=== PATIENT | male | born 1950 | race Caucasian/White ===

== ENCOUNTER 2020-06-12 20:41 | Observation (INO) | payer OTHER ==
[2020-06-12 21:10] LABS: Absolute Lymphocytes (CBC) 1.8 K/uL (0.7-4.9); Basophils % 1.4 % (0-1.3); Hematocrit 41.1 % (39.6-49.0); Lymphocytes % 30.6 % (15.3-44.8); MPV 7.9 fL (7.6-11.3); RBC Red Blood Cell Count 4.53 M/uL (4.33-5.43)
[2020-06-12 21:14] LABS: Protime INR 0.95
[2020-06-12 21:31] LABS: ALT/SGPT 38 U/L (12-78); Albumin 3.8 g/dL (3.4-5.0); Alkaline Phosphatase 65 U/L (45-117); BUN Blood Urea Nitrogen 19 mg/dL (7-18); Bicarbonate 27 mmol/L (21-32); Bilirubin Direct < 0.1 mg/dL (0-0.2); Bilirubin Total 0.3 mg/dL (0.2-1.0); Glucose Level 81 mg/dL (74-106); NT PRO-BNP 132 pg/mL (<125); Protein, Total 7.8 g/dL (6.4-8.2); Sodium Level 140 mmol/L (136-145); Troponin (Emerg Dept Use Only) < 0.02 ng/mL (0.0-0.045)
[2020-06-12 21:32] LABS: AST/SGOT 22 U/L (15-37); Magnesium 2.4 mg/dL (1.8-2.4); Potassium 3.8 mmol/L (3.5-5.1)
--- NOTE | 2020-06-13 00:39 | ER ---
Nurse's Notes [facility] Name: Urbano Gonzales Age: 69 yrs Sex: Male : 1950 Arrival Date: 06/12/2020 Time: 20:43 Bed 6 Private MD: Diagnosis: Chest pain, unspecified Presentation: 06/12 20:47 Coronavirus screen: Client denies travel out of the [place] in the last 14 days. At this ll1 time, the client does not indicate any symptoms associated with coronavirus-19. Ebola Screen: Patient denies travel to an Ebola-affected area in the 21 days before illness onset. Initial Sepsis Screen: Does the patient meet any 2 criteria? No. Patient's initial sepsis screen is negative. Does the patient have a suspected source of infection? No. Patient's initial sepsis screen is negative. Risk Assessment: Do you want to hurt yourself or someone else? Patient reports no desire to harm self or others. Onset of symptoms was June 10, 2020. 20:47 Acuity: JIMI 2 ll1 20:47 Method Of Arrival: Ambulatory ll1 20:51 Chief complaint: Patient states: Chest pain for 2-3 days. Pain down L arm. Tingling in ll1 legs. + lightheaded. States he noticed the pain in his mid back today. Historical: - Allergies: 20:47 No Known Allergies; ll1 - PMHx: 20:47 Myocardial infarction; bladder tumors removed; Hyperlipidemia; Hypertension; ll1 - PSHx: 20:47 cardiac stent and bypass; ll1 - Immunization history:: Flu vaccine is up to date. - Social history:: Smoking status: Patient denies any tobacco usage or history of. Screenin:03 Abuse screen: Denies threats or abuse. Nutritional screening: No deficits noted. ea Tuberculosis screening: No symptoms or risk factors identified. Fall Risk IV access (20 points). Assessment: 21:04 General: Appears in no apparent distress. Behavior is appropriate for age. Pain: ea Complains of pain in thoracic area Pain does not radiate. Pain began suddenly. Neuro: Level of Consciousness is awake, alert, obeys commands, Oriented to person, place, time, situation. Cardiovascular: Patient's skin is warm and dry. Respiratory: Airway is patent Respiratory effort is even, unlabored, Respiratory pattern is regular, symmetrical. 21:46 Reassessment: [id number]. ea 22:08 Reassessment: Patient and/or family updated on plan of care and expected duration. Pain ea level reassessed. Patient is alert, oriented x 3, equal unlabored respirations, skin warm/dry/pink. 22:16 Reassessment: -[id number] ( jose). mg2 22:27 Reassessment: Patient and/or family updated on plan of care and expected duration. Pain ea level reassessed. Patient is alert, oriented x 3, equal unlabored respirations, skin warm/dry/pink. Pt returned from CT. 23:27 Reassessment: Patient appears in no apparent distress at this time. Patient and/or mg2 family updated on plan of care and expected duration. Pain level reassessed. Patient is alert, oriented x 3, equal unlabored respirations, skin warm/dry/pink. 06/13 00:33 Reassessment: Patient appears in no apparent distress at this time. Patient and/or mg2 family updated on plan of care and expected duration. Pain level reassessed. Patient is alert, oriented x 3, equal unlabored respirations, skin warm/dry/pink. 00:54 Reassessment: BRENDON Garcia- hospitalist at bedside with the patient. advised admission. mg2 Vital Signs: 06/12 20:47 BP 139 / 72; Pulse 52; Resp 16; Temp 97.3; Pulse Ox 100% ; Weight 96.16 kg; Height 5 ll1 ft. 10 in. (177.80 cm); Pain 5/10; 21:47 BP 133 / 51; Pulse 53; Resp 18; Pulse Ox 99% ; ea 22:29 BP 149 / 56; Pulse 51; Resp 18; Pulse Ox 98% on R/A; mg2 23:27 BP 125 / 52; Pulse 49; Resp 18; Pulse Ox 100% on R/A; mg2 06/13 00:33 BP 130 / 63; Pulse 48; Resp 18; Pulse Ox 100% on R/A; mg2 01:08 BP 136 / 59; Pulse 46; Resp 18; Temp 97.2; Pulse Ox 99% ; ea 06/12 20:47 Body Mass Index 30.42 (96.16 kg, 177.80 cm) ll1 ED Course: 06/12 20:43 Patient arrived in ED. ds1 20:48 Triage completed. ll1 20:48 Robin Boogie, RN is Primary Nurse. mg2 20:50 Walter Carl PA is PHCP. cp 20:50 Walter Myers MD is Attending Physician. cp 20:52 Arm band placed on Patient placed in an exam room, on a stretcher. ll1 21:03 Patient has correct armband on for positive identification. Placed in gown. Bed in low ea position. Call light in reach. Side rails up X 1. marketing lead on. Pulse ox on. NIBP on. 21:03 Inserted saline lock: 20 gauge in right antecubital area, using aseptic technique. ea Blood collected. 21:03 Patient maintains SpO2 saturation greater than 95% on room air. ea 23:27 No provider procedures requiring assistance completed. mg2 06/13 00:38 Bharat Rubi MD is Hospitalizing Provider. cp 01:07 Patient admitted, IV remains in place. ea 01:17 COVID swab sent to lab. mg2 Administered Medications: 01:07 Drug: Aspirin Chewable Tablet 324 mg Route: PO; ea 01:39 Follow up: Response: No adverse reaction mg2 Outcome: 00:39 Decision to Hospitalize by Provider. cp 01:07 Instructed on the need for admit, Demonstrated understanding of instructions. ea 02:38 Admitted to Med/surg accompanied by nurse, via wheelchair, with chart, Report called to ea Receiving nurse on second floor 02:38 Condition: stable 02:39 Patient left the ED. ea Signatures: Betsy Novoa ds1 Walter Carl PA PA cp Marivel Jo RN RN Robin Boogie RN RN [facility] Morena Haynes RN RN [facility]
--- NOTE | 2020-06-13 00:39 | EDPHYS ---
Physician Documentation [facility] Name: Urbano Gonzales Age: 69 yrs Sex: Male : 1950 Arrival Date: 06/12/2020 Time: 20:43 Bed 6 Private MD: ED Walter Grewal HPI: 06/12 21:04 This 69 yrs old Male presents to ER via Ambulatory with complaints of Chest cp Tightness. 21:05 The patient or guardian reports chest pain that is located primarily in the anterior cp chest wall, bilaterally. 21:05 Onset: 2 day(s) ago. The pain radiates to the left arm. Associated signs and symptoms: cp Pertinent positives: lightheadedness, mid back pain, Pertinent negatives: cough, shortness of breath, vomiting. The chest pain is described as tightness. 21:05 Duration: The patient or guardian reports multiple episodes, that are intermittent. cp Historical: - Allergies: 20:47 No Known Allergies; ll1 - PMHx: 20:47 Myocardial infarction; bladder tumors removed; Hyperlipidemia; Hypertension; ll1 - PSHx: 20:47 cardiac stent and bypass; ll1 - Immunization history:: Flu vaccine is up to date. - Social history:: Smoking status: Patient denies any tobacco usage or history of. ROS: 21:10 Constitutional: Negative for body aches, chills, fever, poor PO intake. cp 21:10 Cardiovascular: Positive for chest pain, Negative for edema, palpitations. cp 21:10 Respiratory: Negative for cough, shortness of breath, wheezing. 21:10 Abdomen/GI: Negative for abdominal pain, nausea, vomiting, and diarrhea. 21:10 Back: Positive for pain at rest, radiated pain, of the mid back, Negative for injury or acute deformity. 21:10 Neuro: Negative for altered mental status, headache, syncope, weakness. Exam: 21:03 ECG was reviewed by the Attending Physician. cp 21:15 Constitutional: The patient appears in no acute distress, alert, awake, cp non-diaphoretic, non-toxic, well developed, well nourished. 21:15 Head/Face: Normocephalic, atraumatic. cp 21:15 Eyes: Periorbital structures: appear normal, Conjunctiva: normal, no exudate, no injection, Sclera: no appreciated abnormality, Lids and lashes: appear normal, bilaterally. 21:15 ENT: External ear(s): are unremarkable, Nose: is normal, Mouth: Lips: moist, Oral mucosa: moist, Posterior pharynx: Airway: no evidence of obstruction, patent. 21:15 Neck: ROM/movement: is normal, is supple, without pain, no range of motions limitations. 21:15 Chest/axilla: Inspection: normal, Palpation: is normal, no crepitus, no tenderness. 21:15 Cardiovascular: Rate: bradycardic, Rhythm: regular, Edema: is not appreciated, JVD: is not appreciated. 21:15 Respiratory: the patient does not display signs of respiratory distress, Respirations: normal, no use of accessory muscles, no retractions, labored breathing, is not present, Breath sounds: are clear throughout, no decreased breath sounds, no stridor, no wheezing. 21:15 Abdomen/GI: Inspection: abdomen appears normal, Palpation: abdomen is soft and non-tender, in all quadrants. 21:15 Back: pain, that is mild, of the mid back, ROM is normal. 21:15 Skin: no rash present. Vital Signs: 20:47 BP 139 / 72; Pulse 52; Resp 16; Temp 97.3; Pulse Ox 100% ; Weight 96.16 kg; Height 5 ll1 ft. 10 in. (177.80 cm); Pain 5/10; 21:47 BP 133 / 51; Pulse 53; Resp 18; Pulse Ox 99% ; ea 22:29 BP 149 / 56; Pulse 51; Resp 18; Pulse Ox 98% on R/A; mg2 23:27 BP 125 / 52; Pulse 49; Resp 18; Pulse Ox 100% on R/A; mg2 06/13 00:33 BP 130 / 63; Pulse 48; Resp 18; Pulse Ox 100% on R/A; mg2 01:08 BP 136 / 59; Pulse 46; Resp 18; Temp 97.2; Pulse Ox 99% ; ea 06/12 20:47 Body Mass Index 30.42 (96.16 kg, 177.80 cm) ll1 MDM: 06/12 20:52 Patient medically screened. cp 21:00 Differential diagnosis: abnormal EKG, acute myocardial infarction, pneumonia, cp pneumothorax, pulmonary embolus, stable angina, thoracic aortic disection, unstable angina. 06/13 00:30 Physician consultation: Jose MENESES was contacted at 00:30, regarding admission, cp to the telemetry unit. patient's condition. 00:38 Data reviewed: vital signs, nurses notes, lab test result(s), EKG, radiologic studies, cp CT scan, plain films, and as a result, I will admit patient. 06/12 20:56 Order name: Basic Metabolic Panel mg2 06/12 20:56 Order name: CBC with Diff mg2 06/12 20:56 Order name: LFT's mg2 06/12 20:56 Order name: Magnesium mg2 06/12 20:56 Order name: NT PRO-BNP mg2 06/12 20:56 Order name: PT-INR mg2 06/12 20:56 Order name: Troponin (emerg Dept Use Only) mg2 06/12 21:16 Order name: Protime (+INR); Complete Time: 21:55 EDMS 06/12 21:17 Order name: CBC with Automated Diff; Complete Time: 21:55 EDMS 06/12 21:33 Order name: Basic Metabolic Panel; Complete Time: 21:55 EDMS 06/12 21:33 Order name: Liver (Hepatic) Function; Complete Time: 21:55 EDMS 06/12 21:33 Order name: Troponin (Emerg Dept Use Only); Complete Time: 21:55 EDMS 06/12 21:33 Order name: NT PRO-BNP; Complete Time: 21:55 EDMS 06/12 21:33 Order name: Magnesium; Complete Time: 21:55 EDMS 06/12 20:52 Order name: EKG; Complete Time: 20:53 cp 06/12 20:52 Order name: EKG - Nurse/Tech; Complete Time: 20:55 cp 06/12 20:56 Order name: XRAY Chest (1 view) mg2 06/12 20:56 Order name: Cardiac monitoring; Complete Time: 21:03 mg2 06/12 20:56 Order name: IV Saline Lock; Complete Time: 21:03 mg2 06/12 20:56 Order name: Labs collected and sent; Complete Time: 21:03 mg2 06/12 20:56 Order name: O2 Per Protocol; Complete Time: 21:03 mg2 06/12 20:56 Order name: O2 Sat Monitoring; Complete Time: 21:03 mg2 06/12 21:56 Order name: CT Aorta for Dissection cp 06/12 21:56 Order name: CT Head Brain wo Cont cp 06/13 00:54 Order name: COVID-19 mg2 06/13 01:05 Order name: CORONAVIRUS EDMS 06/13 02:26 Order name: SARS-COV-2 RT PCR EDMS EC/21 21:03 Rate is 49 beats/min. Rhythm is regular. OH interval is normal. QRS interval is cp prolonged at 156 msec. QT interval is normal. T waves are Flattened in lead aVL. Interpreted by me. Reviewed by me. Administered Medications: 06/13 01:07 Drug: Aspirin Chewable Tablet 324 mg Route: PO; ea 01:39 Follow up: Response: No adverse reaction mg2 Disposition: 01:00 Chart complete. cp 07:22 Co-signature as Attending Physician, Walter Myers MD I agree with the assessment and [facility] plan of care. Disposition: 06/13/20 00:39 Hospitalization ordered by Bharat Rubi for Observation. Preliminary diagnosis is Chest pain, unspecified. - Bed requested for Telemetry/MedSurg (observation). - Status is Observation. ea - Condition is Stable. - Problem is new. - Symptoms have improved. Signatures: Dispatcher [employer] Walter Newell MD MD cha Page, Corey, PA PA cp Garcia, Cindy, BOY RN cg Marivel Jo RN RN ea Gardose, Michele, RN RN mg2 Morena Haynes RN RN ll1 Corrections: (The following items were deleted from the chart) 02: 00:39 Hospitalization Ordered by Bharat Rubi MD for Observation. Preliminary cg diagnosis is Chest pain, unspecified. Bed requested for Telemetry/MedSurg (observation). Status is Observation. Condition is Stable. Problem is new. Symptoms have improved. cp 02:39 02:22 06/13/2020 00:39 Hospitalization Ordered by Bharat Rubi MD for Observation. ea Preliminary diagnosis is Chest pain, unspecified. Bed requested for Telemetry/MedSurg (observation). Status is Observation. Condition is Stable. Problem is new. Symptoms have improved. cg
[2020-06-13] MEDS ORDERED: ASPIRIN 81 MG CHEWABLE TABLET ONE (01:10)
[2020-06-13] MEDS ORDERED: MORPHINE 2 MG/ML SYR IV PRN (01:43)
[2020-06-13] MEDS ORDERED: ONDANSETRON 4 MG/2 ML VIAL IV PRN (01:43)
--- NOTE | 2020-06-13 02:12 | P.HP ---
Certification for Inpatient Patient admitted to: Observation With expected LOS: <2 Midnights Patient will require the following post-hospital care: None Practitioner: I am a practitioner with admitting privileges, knowledge of patient current condition, hospital course, and medical plan of care. Services: Services provided to patient in accordance with Admission requirements found in Title 42 Section 412.3 of the Code of Federal Regulations <Jose Redman - Last Filed: 06/13/20 02:08> Patient History Date of Service: 06/13/20 Primary Care Provider: Dr. Mulligan Reason for admission: Chest pain History of Present Illness: 61-year-old male with history of hypertension, hyperlipidemia, CAD S/P CABG and stenting to the LAD approximately 12 years ago presents to the emergency department for chest pain. Patient reports that he has been having chest pain intermittently for the last 2-3 days, pain is described as pressure/burning in nature radiating to the back, no associated shortness of breath, nausea, diaphoresis. Pain is not exacerbated or relieved by anything inparticular. Patient was worked up in the emergency department labs unremarkable, EKG without acute changes. Patient had CT dissection protocol performed which did not demonstrate any acute findings, ED provider wishes to admit patient for further evaluation and management of chest pain. - Past Medical/Surgical History -: Hypertension -: Hyperlipidemia -: CAD S/P stenting and CABG to LAD -: CABG x1 LAD Psychosocial/ Personal History: Patient is retired, lives with his - Social History Smoking Status: Never smoker Alcohol use: Yes CD- Drugs: No Caffeine use: Yes Place of Residence: Home <ShannanJose wilder - Last Filed: 06/13/20 02:08> Date of Service: 06/15/20 <Bharat Rubi - Last Filed: 06/15/20 20:33> Allergies No Known Allergies Allergy (Verified 06/13/20 03:20) Review of Systems 10-point ROS is otherwise unremarkable Cardiovascular: Chest Pain, As per HPI <Jose Redman - Last Filed: 06/13/20 02:08> Physical Examination - Physical Exam General: Alert, In no apparent distress HEENT: Atraumatic, PERRLA, Mucous membr. moist/pink Neck: Supple, 2+ carotid pulse no bruit, No LAD Respiratory: Clear to auscultation bilaterally, Normal air movement Cardiovascular: Regular rate/rhythm, Normal S1 S2 Gastrointestinal: Normal bowel sounds, No tenderness Musculoskeletal: No tenderness Integumentary: No rashes Neurological: Normal speech, Normal strength at 5/5 x4 extr, Normal tone - Studies Laboratory Data (last 24 hrs) 06/12/20 21:00: PT 11.2, INR 0.95 06/12/20 21:00: WBC 6.0, Hgb 14.1, Hct 41.1, Plt Count 258 06/12/20 21:00: Sodium 140, Potassium 3.8, BUN 19 H, Creatinine 1.20, Glucose 81, Magnesium 2.4, Total Bilirubin 0.3, AST 22, ALT 38, Alkaline Phosphatase 65 <Jose Redman - Last Filed: 06/13/20 02:08> Assessment and Plan - Plan Assessment Chest pain with history of CAD S/P CABG- rule out ACS Hypertension Hyperlipidemia Plan Chest pain with history of CAD S/P CABG- rule out ACS: Monitor on telemetry, trend troponins, cardiology consult in place. Continue daily aspirin, statin therapy. Obtain and restart home medications as appropriate. NPO in case cardiology prefers intervention. Hypertension: Obtain and continue home medications as appropriate Hyperlipidemia: Lipid panel with morning labs, continue statin therapy. Discharge Plan: Home Plan to discharge in: 24 Hours - Advance Directives Does patient have a Living Will: No Does patient have a Durable POA for Healthcare: No - Code Status/Comfort Care Code Status Assessed: Yes (Full code) Critical Care: No Time Spent Managing Pts Care (In Minutes): 55 <Jose Redman - Last Filed: 06/13/20 02:08> - Plan Agree with plan of care as noted above by Jose Redman. monitor telemetry, trend troponin. cardiology consulted <Bharat Rubi - Last Filed: 06/15/20 20:33>
[2020-06-13 02:50] VITALS: O2SAT 99
[2020-06-13 03:10] VITALS: BMI 30.6
[2020-06-13 07:41] LABS: Absolute Lymphocytes (CBC) 1.3 K/uL (0.7-4.9); Basophils % 0.9 % (0-1.3); Lymphocytes % 24.1 % (15.3-44.8); MPV 7.9 fL (7.6-11.3); RBC Red Blood Cell Count 4.27 M/uL (4.33-5.43)
[2020-06-13 07:56] LABS: BUN Blood Urea Nitrogen 19 mg/dL (7-18); Bicarbonate 27 mmol/L (21-32); Glucose Level 94 mg/dL (74-106); HDL Cholesterol 58 mg/dL (40-60); LDL Cholesterol, Calculated 94 (<130); Magnesium 2.4 mg/dL (1.8-2.4); Potassium 4.2 mmol/L (3.5-5.1); Sodium Level 141 mmol/L (136-145); Troponin I < 0.02 ng/mL (0.0-0.045)
--- NOTE | 2020-06-13 08:36 | RAD REPORT ---
EXAM DESCRIPTION: RAD - Chest Single View - 06/12/2020 9:39 pm CLINICAL HISTORY: CHEST PAIN Chest pain. COMPARISON: Angio Aorta For Dissection dated 06/12/2020 FINDINGS: Portable technique limits examination quality. Mild linear atelectasis is suspected in both lung bases. The lungs are otherwise clear. The heart is upper limit normal size. No displaced fractures.
[2020-06-13] MEDS: ASPIRIN EC 81 MG TAB PO SCH ×2 (09:00→10:00)
[2020-06-13] MEDS ORDERED: ENOXAPARIN 40 MG/0.4 ML SQ SCH (09:00)
[2020-06-13 10:05] VITALS: BP 130/63; TEMP 98.1
--- NOTE | 2020-06-13 11:50 | RAD REPORT ---
EXAM DESCRIPTION: CT of the head without contrast CLINICAL HISTORY: Paresthesia of arm COMPARISON: None available TECHNIQUE: Axial CT of the head obtained from the skull apex to the skull base without contrast. FINDINGS: No acute intracranial hemorrhage identified. No mass, mass effect, shift of the midline, a bnormal extra-axial fluid collection or CT evidence of acute ischemic change identified. The ventricu lar system and sulcal spaces are mildly enlarged compatible with mild cerebral atrophy. Scattered a reas of hypodensity throughout the supratentorial white matter are nonspecific and may be related to chronic small vessel ischemic change. The visualized paranasal sinuses and mastoid air cells are well aerated. No skull fracture identifi ed. Visualized orbits and globes are unremarkable. Atherosclerotic calcification of the intracranial internal carotid arteries. IMPRESSION: 1. No acute intracranial abnormality by CT criteria. This exam was performed according to our departmental dose-optimization program, which includes autom ated exposure control, adjustment of the mA and/or kV according to patient size and/or use of iterati ve reconstruction technique. Electronically signed by: Rowdy Yi 06/12/2020 10:47 PM SIGN BOARD ERECTOR Due to temporary technical issues with the PACS/Fluency reporting system, reports are being signed by the in house radiologist without review as a courtesy to ensure prompt reporting. The interpreting r adiologist is fully responsible for the content of the report.
--- NOTE | 2020-06-13 11:51 | RAD REPORT ---
EXAM DESCRIPTION: CTA of the chest, abdomen, and pelvis with contrast CLINICAL HISTORY: Back pain;Chest pain COMPARISON: None Available. TECHNIQUE: CTA of the chest, abdomen and pelvis performed following IV administration of iodinated c ontrast. 3-D/MIP reformatted images available. FINDINGS: Chest: Thyroid: No abnormalities of the visualized thyroid. Great Vessels: Great vessels have normal anatomic configuration. Thoracic Aorta: Normal caliber thoracic aorta without evidence of dissection. Mild atherosclerotic pl aque. Pulmonary arteries: No filling defects in the pulmonary arteries. Mild enlargement main pulmonary art karoline could be seen with pulmonary arterial hypertension. Heart: Coronary artery atherosclerosis. No cardiomegaly or significant pericardial effusion. Lymph Nodes: No enlarged mediastinal lymph nodes identified. Esophagus: No abnormalities of the esophagus identified Other: Negative reported airspace consolidation. Minimal bilateral dependent atelectasis. Lungs: No airspace opacities identified. Pleura: No pleural effusion or pneumothorax. Trachea/Airways: No abnormalities of the visualized trachea or airways. Abdomen: Liver: The liver has normal size and density. No intrahepatic mass or biliary dilatation. Gallbladder: No calcified gallstones. Spleen, Pancreas, and Adrenal Glands: The spleen, pancreas, and adrenal glands are unremarkable. Kidneys: The kidneys have normal size and contour without evidence of solid mass or hydronephrosis. Vasculature: Normal caliber abdominal aorta. Aortoiliac atherosclerosis. There is in-line flow into t he common iliac, external, common femoral, proximal superficial femoral arteries. The profunda femora l and internal iliac arteries are patent. The left gastric artery arises directly from the aorta. The celiac and superior mesenteric arteries arise as a single origin celiomesenteric trunk which is wide ly patent. The inferior mesenteric artery is patent. Single patent bilateral renal arteries. No evide nce of aortic dissection. IVC has normal caliber. Stomach: The stomach and duodenum have normal course. Other: No free intraperitoneal air. No free fluid or lymphadenopathy. Pelvis: Bladder: Urinary bladder is unremarkable. Bowel: No dilated loops of large or small bowel. Scattered diverticula of the colon. Appendix: Normal appendix. Pelvis: The small bilateral fat-containing inguinal hernias. Enlarged prostate. Bones: Multilevel degenerative endplate spondylosis. Mild bilateral hip joint space narrowing. IMPRESSION: 1. No evidence of aortic dissection 2. No pulmonary embolus. 3. Coronary artery atherosclerosis. 4. Diverticulosis without evidence of acute diverticulitis. 5. Enlarged prostate. This exam was performed according to our departmental dose-optimization program, which includes autom ated exposure control, adjustment of the mA and/or kV according to patient size and/or use of iterati ve reconstruction technique. Electronically signed by: Rowdy Yi 06/12/2020 10:58 PM [employer] Due to temporary technical issues with the PACS/Fluency reporting system, reports are being signed by the in house radiologist without review as a courtesy to ensure prompt reporting. The interpreting r adiologist is fully responsible for the content of the report.
[2020-06-13] MEDS ORDERED: ATORVASTATIN 40 MG TAB PO SCH (21:00)
--- NOTE | 2020-06-14 14:14 | CON ---
Date of Consultation: 06/13/2020 Reason For Consultation: Chest pain. History Of Present Illness: 69-year-old male who has hypertension, dyslipidemia, and coronary artery disease, status post 1 vessel CABG to the LAD about 12 years ago, presented with chest pain, describ ed as heaviness, pressure-like that radiates to the left upper extremity. No shortness of breath or diaphoresis lasted about 15 minutes and resolved. The patient apparently has been having those chest pains for some time now and stress test has been negative and he sees Dr. Bingham in the office on a regular basis. Past Medical History: Hypertension, dyslipidemia, coronary artery disease. Past Surgical History: Coronary artery bypass 1 vessel about 12 years ago. Medications: Refer to reconciliation sheet for detailed list. Allergies: NO KNOWN DRUG ALLERGIES. Family History: No premature coronary artery disease or cancer. Social History: Does not smoke or drink. Does not use any drugs. Review of Systems: All systems reviewed and they were negative except for what mentioned in the HPI. Physical Examination: Vital Signs: Temperature is 98.1, pulse is 48, breathing at 18, blood pressure 130/63, saturating 96 % on room air. General: Pleasant middle-aged male, in no distress. Head and Neck: Pupils are equal, reactive to light. Intact eye movements. No JVD. No cervical lym phadenopathy. Neck: Supple. Thyroid is not enlarged. Lungs: Clear to auscultation bilaterally. No rhonchi, rales, or crackles. No accessory muscle use. Heart: Regular rate and rhythm. No extra sounds. Abdomen: Soft, nontender. Bowel sounds positive. No organomegaly. No masses or hernia. No rigidi ty or rebound. Extremities: No edema, clubbing, cyanosis, intact pulses. Skin: No rash. Neurologic: Alert, awake, oriented x3. No acute focal deficits appreciated. Investigations: Labs were reviewed. Troponin x3 are negative, less than 0.02. Creatinine 1.02, hem oglobin is 14.1. EKG without acute specific abnormalities. Assessment And Recommendations: Chest pain with known history of coronary artery disease. There are some typical features to it. However, myocardial infarction was ruled out and EKG is benign. Since the patient remained stable, took it from my standpoint to discharge home and follow up with Dr. Barr. The patient was instructed to follow up with Dr. Bingham in the office early next week for a s tress test to further evaluate. If stress test is negative and the patient continues to be symptomat ic, a coronary angiogram would be appropriate. Thank you for the consult. /MU Voice ID: [id number] Report ID: [id number]
--- NOTE | 2020-06-22 19:24 | P.DS ---
Admission Date: 06/13/20 Discharge Date: 06/13/20 Primary Care Provider: Dr. Mulligan Disposition: ROUTINE DISCHARGE Discharge Condition: GOOD Reason for Admission: Chest pain Consultations: Cardiology - Dr. Kothari Procedures: CXR (06/12): Mild linear atelectasis is suspected in both lung bases. The lungs are otherwise clear. The heart is upper limit normal size. No displaced fractur es. CT Chest Dissection (06/12): No evidence of aortic dissection, No pulmonary embolus. Coronary artery atherosclerosis. Diverticulosis without evidence of acute diverticulitis. Enlarged prostate. CT Head (06/12): No acute intracranial abnormality Problem List: Chest pain with history of CAD S/P CABG- rule out ACS Hypertension Hyperlipidemia Brief History of Present Illness: 61-year-old male with history of hypertension, hyperlipidemia, CAD S/P CABG and stenting to the LAD approximately 12 years ago presents to the emergency department for chest pain. Patient reports that he has been having chest pain intermittently for the last 2-3 days, pain is described as pressure/burning in nature radiating to the back, no associated shortness of breath, nausea, diaphoresis. Pain is not exacerbated or relieved by anything in particular. Patient was worked up in the emergency department labs unremarkable, EKG without acute changes. Patient had CT dissection protocol performed which did not demonstrate any acute findings, ED provider wishes to admit patient for further evaluation and management of chest pain. Hospital Course: Troponins were trended and remained negative. Chest pain improved. Cardiology was consulted and recommended follow up in office early next weak for stress test with Dr. Bingham. ACS was effectively ruled out. Given the negative workup and improvement in his pain, patient was discharged home to f/u with Cardiology. Patient expressed understanding and agreement with plan. Vital Signs/Physical Exam: Temp Pulse Resp BP Pulse Ox 98.1 F 48 L 18 130/63 96 06/13/20 08:00 06/13/20 08:00 06/13/20 08:00 06/13/20 08:00 06/13/20 08:00 General: Alert, In no apparent distress, Oriented x3 HEENT: Sclerae nonicteric Cardiovascular: No edema, Regular rate/rhythm Gastrointestinal: Soft and benign, Non-distended Musculoskeletal: No tenderness Integumentary: No rashes Neurological: Normal speech, Normal affect Laboratory Data at Discharge: WBC 5.5 K/uL (4.3-10.9) 06/13/20 07:07 Hgb 13.0 g/dL (13.6-17.9) L 06/13/20 07:07 Hct 39.0 % (39.6-49.0) L 06/13/20 07:07 Plt Count 227 K/uL (152-406) 06/13/20 07:07 PT 11.2 SECONDS (9.5-12.5) 06/12/20 21:00 INR 0.95 06/12/20 21:00 Sodium 141 mmol/L (136-145) 06/13/20 07:07 Potassium 4.2 mmol/L (3.5-5.1) 06/13/20 07:07 BUN 19 mg/dL (7-18) H 06/13/20 07:07 Creatinine 1.02 mg/dL (0.55-1.3) 06/13/20 07:07 Glucose 94 mg/dL (74-106) 06/13/20 07:07 Magnesium 2.4 mg/dL (1.8-2.4) 06/13/20 07:07 Total Bilirubin 0.3 mg/dL (0.2-1.0) 06/12/20 21:00 AST 22 U/L (15-37) 06/12/20 21:00 ALT 38 U/L (12-78) 06/12/20 21:00 Alkaline Phosphatase 65 U/L (45-117) 06/12/20 21:00 Troponin I < 0.02 ng/mL (0.0-0.045) 06/13/20 13:17 Triglycerides 84 mg/dL (<150) 06/13/20 07:07 Cholesterol 169 mg/dL (<200) 06/13/20 07:07 HDL Cholesterol 58 mg/dL (40-60) 06/13/20 07:07 Cholesterol/HDL Ratio 2.91 06/13/20 07:07 Home Medications: Amlodipine [Norvasc*] 1 tab PO DAILY 06/13/20 Aspirin Chewable [Aspirin Chewable*] 1 tab PO DAILY 06/13/20 Atorvastatin Calcium [Lipitor] 1 tab PO DAILY 06/13/20 Cholecalciferol (Vitamin D3) [Vitamin D 1000 Iu Tab*] 2 tab PO DAILY 06/13/20 Docosahexanoic AC/Epa [Fish Oil 1,000 MG*] 1,000 mg PO DAILY 06/13/20 Esomeprazole Magnesium [Nexium] 1 tab PO DAILY 06/13/20 Levocetirizine Dihydrochloride [Xyzal] 1 tab PO DAILY 06/13/20 Lisinopril [Zestril] 1 tab PO DAILY 06/13/20 Ubidecarenone [Co Q-10] 1 tab PO DAILY 06/13/20 Zinc 1 tab PO DAILY 06/13/20 Patient Discharge Instructions: your ekg and cardiac enzymes were normal and unlikely that your heart is the cause of your chest pain. Continue home medications as prescribed. Recommend eating less spicy food and less caffeine. Follow up with Dr. Bingham next week - call to schedule appointment. If pain recurs / persists they can perform stress test in the office. Diet: [place] Activity: Ad noemy Followup: Cesar Bingham MD [ACTIVE - CAN ADMIT] - Yobany Mulligan MD [Primary Care Provider] -
== END 2020-06-13 16:26 | disposition home or self-care (01) ==
LOC: ER 20:41 → ERHOLD 06-13 01:05 → 2ND 06-13 02:48
PROVIDERS: ADMIT Hospitalist; ATTEND Hospitalist
DX: R07.89 Other chest pain (principal); I25.10 Atherosclerotic heart disease of native coronary artery without angina pectoris; Z95.1 Presence of aortocoronary bypass graft; Z95.5 Presence of coronary angioplasty implant and graft; I10 Essential (primary) hypertension; Z20.822 Contact with and (suspected) exposure to COVID-19; E78.5 Hyperlipidemia, unspecified; I25.2 Old myocardial infarction; R94.31 Abnormal electrocardiogram [ECG] [EKG]
CPT/HCPCS: 93005; 85025 ×2; 80048 ×2; 36415; 83735 ×2; 85610; 80061; 80076; 84443; 84484 ×3; 84439; 83880; 70450; 71275; 74175; 71045; 99285; U0003; Q9967; J1650; G0378 ×2